=== PATIENT | female | born 2000 | race Caucasian/White ===

== ENCOUNTER 2023-10-28 13:12 | Outpatient (CLI) | payer BC, SELFPAY ==
[2023-10-28 18:23] LABS: Chlamydia DNA Amplified* NOT DETECTED (No Detected); GC DNA Amplified* NOT DETECTED (No Detected)
== END 2023-10-28 13:13 | disposition home or self-care (01) ==
LOC: NFLDREF 13:14
PROVIDERS: PCP Family Medicine; Visit Provider Registered Nurse
DX: Z11.3 Encounter for screening for infections with a predominantly sexual mode of transmission (principal)
CPT/HCPCS: 87491; 87591

== ENCOUNTER 2024-03-30 16:54 | Outpatient (CLI) | payer BC, SELFPAY ==
[2024-03-30 22:10] LABS: Chlamydia DNA Amplified* NOT DETECTED (No Detected); GC DNA Amplified* NOT DETECTED (No Detected)
== END 2024-03-30 16:55 | disposition home or self-care (01) ==
LOC: NFLDREF 16:54
PROVIDERS: PCP Family Medicine; Visit Provider Registered Nurse
DX: Z11.3 Encounter for screening for infections with a predominantly sexual mode of transmission (principal)
CPT/HCPCS: 87491; 87591

== ENCOUNTER 2024-06-04 11:21 | Outpatient (CLI) | payer BC, SELFPAY | END 2024-06-04 11:22 | disposition home or self-care (01) | PROVIDERS: PCP Family Medicine; Referring Provider Family Medicine; Visit Provider Registered Nurse | DX: R35.0 Frequency of micturition (principal); L40.9 Psoriasis, unspecified; L30.9 Dermatitis, unspecified; N39.0 Urinary tract infection, site not specified | CPT/HCPCS: 87086; 87186 ==